=== PATIENT | female | born 1965 | race Caucasian/White ===

== ENCOUNTER 2019-09-11 15:13 | Outpatient (CLI) | payer BC, OTHER, SELFPAY ==
--- NOTE | 2019-09-11 17:30 | MR_ITS ---
WS: [id number] MRI RIGHT KNEE NONCONTRAST TECHNIQUE: Axial PD, coronal PD fat sat, coronal PD, sagittal PD, and sagittal PD fat-sat images obta ined. CLINICAL INFORMATION: M17.0 Bilateral primary osteoarthritis of knee COMPARISON: None. FINDINGS: Osteoarthritis right knee advanced for patient this age. This is worse involving the medial joint com partment with hypertrophic changes along the joint line. Distal quadriceps and patella tendons are in tact. Hypertrophic patella. Anterior and posterior cruciate ligaments are intact. Small suprapatellar effusion. Complex horizontal tear involving the medial meniscus involving the anterior and posterior horns. Blunting of the posterior horn. Meniscal tear Extends to the free edge. Large lobulated cluster of ganglion cysts along the lateral femoral condyle just above the joint line . Communication with the suprapatellar bursa. Lobulated cluster measures 3.8 x 1.2 x 3.5 CM. Large lobulated popliteal cyst measuring 1.7 x 3.1 x 6.7 cm AP by transverse by craniocaudal. 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 Chondromalacia worse involving the lateral patella facet with mild subluxation. Moderate joint space narrowing involving the medial and lateral joint compartments with grade III chondromalacia. No significant subchondral edema in the tib ial plateau. Medial and lateral collateral ligaments are intact. MR/MR knee RT wo con* [id number] IMPRESSION: 1. Degenerative arthritis right knee advanced for patient this age. Hypertroph ic changes along the joint line. 2. Advanced chondromalacia patella grade 4 with a small amount of subchondral edema. This is worse involving the lateral patella facet. 3. Large cluster of ganglion cysts along the lateral femoral condyle just abov e the joint line. Fluid appears to communicate with the suprapatellar bursa. 4. Large lobulated popliteal cyst measuring 6.7 cm in maximum dimension as ryan cribed above. 5. Moderate chondromalacia involving the medial and lateral joint compartments . 6. Complex horizontal tear involving the medial meniscus involving the anterio r posterior horns extending to the articular surface. Blunting of the posterior horn. A 7. Anterior and posterior cruciate ligaments are intact.
== END 2019-09-11 15:14 | disposition home or self-care (01) ==
LOC: RADSHAW 15:18
PROVIDERS: PCP Family Medicine; Visit Provider Orthopaedic Surgery
DX: M17.0 Bilateral primary osteoarthritis of knee (principal); M22.41 Chondromalacia patellae, right knee; R60.0 Localized edema; M67.461 Ganglion, right knee; M71.21 Synovial cyst of popliteal space [Baker], right knee; S83.231A Complex tear of medial meniscus, current injury, right knee, initial encounter; X58.XXXA Exposure to other specified factors, initial encounter
CPT/HCPCS: 73721

== ENCOUNTER → 2019-10-30 13:36 | Outpatient (BNVA) | payer BC, OTHER, SELFPAY | PROVIDERS: PCP Family Medicine; Visit Provider Specialist | DX: M17.0 Bilateral primary osteoarthritis of knee (principal) | CPT/HCPCS: 73560; 73565 ==

== ENCOUNTER 2019-11-18 07:05 | Outpatient (CLI) | payer BC, OTHER, SELFPAY ==
--- NOTE | 2019-11-18 07:14 | US_ITS ---
NOTE: Report was unsigned for reason: Order was edited. Original Signature date and time was: 11/18/2019 1218 WS: [id number] ULTRASOUND-GUIDED RIGHT LATERAL KNEE FLUID ASPIRATION INDICATION: Fluid collection knee aspiration TECHNIQUE: Ultrasound-guided fluid aspiration FINDINGS: The procedure including risks benefits and complications were discussed with the patient who agreed to proceed. Using sterile technique patient was prepped and draped in the usual sterile fashion. Timeout was performed. After 1% lidocaine, using ultrasound guidance, approximately 2-3 cc bloody fluid was aspirated with an 18-gauge needle. Fluid was sent for requested diagnostic studies. No immediate applications. [facility] US/[place] [id number] IMPRESSION: Uncomplicated ultrasound-guided aspiration of the right lateral kne e complex fluid collection. Fluid was sent for requested diagnostic tests.
[2019-11-18 11:00] LABS: Apprearance, Body Fluid BLOODY
[2019-11-18 11:03] LABS: Color, Body Fluid SLIGHT PINK
[2019-11-18 11:11] LABS: Crystals, Fluid See Path Consult
[2019-11-18 12:46] LABS: PATH Referral YES
== END 2019-11-18 07:06 | disposition home or self-care (01) ==
LOC: RAD 07:08
PROVIDERS: PCP Family Medicine; Visit Provider Specialist
DX: M17.0 Bilateral primary osteoarthritis of knee (principal)
CPT/HCPCS: 10030; 20611; 80500; 88304; 89050

== ENCOUNTER 2020-07-15 10:37 | Outpatient (RCR) | payer BC, OTHER, SELFPAY | END 2020-08-12 23:59 | disposition home or self-care (01) | LOC: SPT 10:37 | PROVIDERS: PCP Family Medicine; Referring Provider Family Medicine; Visit Provider Family Medicine | DX: H81.13 Benign paroxysmal vertigo, bilateral (principal) | CPT/HCPCS: 95992; 97110; 97162 ==